=== PATIENT | male | born 1980 | race African-American/Black ===

== ENCOUNTER 2018-08-03 17:47 | Emergency (ER) | payer SELFPAY ==
[2018-08-03] MEDS ORDERED: Acetaminophen 500 MG TAB ONE (18:45)
== END 2018-08-03 19:55 | disposition home or self-care (01) ==
LOC: ERS 17:47
DX: J10.1 Influenza due to other identified influenza virus with other respiratory manifestations (principal); F17.210 Nicotine dependence, cigarettes, uncomplicated
CPT/HCPCS: 87804; 99283